=== PATIENT | male | born 1965 | race Caucasian/White ===

== ENCOUNTER 2021-11-08 15:25 | Emergency (ER) | payer OTHER ==
[2021-11-08 15:49] VITALS: BP 119/99
[2021-11-08] MEDS ORDERED: XYLOCAINE 1% HCL 20 ML MDV IJ ONE (15:59)
[2021-11-08] MEDS ORDERED: XYLOCAINE 1% HCL 20 ML MDV ONE (16:00)
--- NOTE | 2021-11-08 16:01 | ERPHSYRPT ---
- History of Present Illness Historian: patient Exam Limitations: no limitations Patient Subjective Stated Complaint: Rectal pain Triage Nursing Assessment: Patient ambulated back to ED and transferred self to bed. Patient A+O X3. Patient's skin pink, warm and dry. Patient states during his shower last night he felt pressure in his rectum and felt a raised area to rectum. Patient denies pain or discomfort. Patient was [facility] today and sent to ED for eval for possible rectal prolapse. Large protrusion noted in rectum. Physician History: 56 yo wm sent from clinic w possible rectal prolapse. Pt has been having mild rectal pain x 1 days. He denies trauma/melena/hematochezia/fever/N/V/D. Timing/Duration: yesterday Activities at Onset: other (Discovered while showering) Quality: aching Abdominal Pain Onset Location: other (Rectal) Pain Radiation: groin Severity of Pain-Current: mild Modifying Factors: Improves With: nothing Associated Symptoms: denies symptoms Previous symptoms: no prior history Allergies/Adverse Reactions: No Known Drug Allergies Allergy (Unverified 11/08/21 15:44) Home Medications: Lisinopril 10 mg [Zestril 10 MG] 1 tab PO DAILY 11/08/21 [History] Hx Influenza Vaccination/Date Given: Yes Hx Pneumococcal Vaccination/Date Given: No Immunizations Up to Date: Yes Travel Risk - International Travel Have you traveled outside of the country in past 3 weeks: No - Coronavirus Screening Are you exhibiting any of the following symptoms?: No Close contact with a COVID-19 positive Pt in past 14-21 Days: No - Vaccine Status Have you recieved a Covid-19 vaccination: Yes 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[employer]: [employer] - Review of Systems Constitutional: No Symptoms Eyes: No Symptoms Ears, Nose, & Throat: No Symptoms Respiratory: No Symptoms Cardiac: No Symptoms Abdominal/Gastrointestinal: No Symptoms Genitourinary Symptoms: No Symptoms Musculoskeletal: No Symptoms Skin: No Symptoms Neurological: No Symptoms Psychological: No Symptoms Endocrine: No Symptoms Hematologic/Lymphatic: No Symptoms Immunological/Allergic: No Symptoms - Past Medical History Pertinent Past Medical History: Yes Neurological History: No Pertinent History ENT History: No Pertinent History Cardiac History: Hypertension Respiratory History: No Pertinent History Endocrine Medical History: No Pertinent History Musculoskeletal History: No Pertinent History GI Medical History: GERD History: No Pertinent History Psycho-Social History: No Pertinent History Other Medical History: Celiac diease - Past Surgical History Past Surgical History: Yes Neuro Surgical History: No Pertinent History Cardiac: No Pertinent History Respiratory: No Pertinent History Gastrointestinal: Cholecystectomy Genitourinary: No Pertinent History Musculoskeletal: No Pertinent History Male Surgical History: No Pertinent History - Social History Smoking Status: Never smoker Exposure to second hand smoke: No Drug Use: none Patient Lives Alone: No Significant Family History: no pertinent family hx - Nursing Vital Signs Nursing Vital Signs: Initial Vital Signs Temperature 97.9 F 11/08/21 15:45 Pulse Rate 94 H 11/08/21 15:45 Respiratory Rate 18 11/08/21 15:45 Blood Pressure 119/99 11/08/21 15:45 O2 Sat by Pulse Oximetry 97 11/08/21 15:45 Pain Scale Pain Intensity 0 WNL - Physical Exam General Appearance: no apparent distress Eye Exam: PERRL/EOMI, eyes nml inspection Ears, Nose, Throat Exam: normal ENT inspection, TMs normal, pharynx normal, moist mucous membranes Neck Exam: normal inspection, non-tender, supple, full range of motion, No meningismus, No mass, No Brudzinski, No Kernig's, No carotid bruit Respiratory Exam: normal breath sounds, lungs clear, airway intact Cardiovascular Exam: regular rate/rhythm, normal heart sounds, normal peripheral pulses, capillary refill <2 sec, No murmur Gastrointestinal/Abdomen Exam: soft, normal bowel sounds, No tenderness Rectal Exam: other (Thrombosed hemorrhoid/No rectal prolapse) Back Exam: normal inspection Extremity Exam: normal inspection Neurologic Exam: alert, oriented x 3, cooperative, soa integration developer II-XII nml as tested, normal mood/affect, nml cerebellar function, nml station & gait, sensation nml Skin Exam: normal color, warm, dry Lymphatic Exam: No adenopathy SpO2 Interpretation: normal SpO2: 97 O2 Delivery: Room Air Procedures - Incision and Drainage Time of Procedure: 16:00 Site: thrombosed hemorrhoid Anesthesia: 1% Lidocaine cc's of anesthesia: 2 Blade Size: 11 I & D Procedure: betadine prep Results: other (Blood clots x2 expressed) - Course Nursing assessment & vital signs reviewed: Yes Ordered Tests: Medication Summary Discontinued Medications Generic Name Dose Route Start Last Admin Trade Name Freq PRN Reason Stop Dose Admin Lidocaine HCl 5 ml 11/08/21 15:59 11/08/21 15:59 Lidocaine Hcl 1% 20 Ml Mdv 20 Ml Ml IJ 11/08/21 16:00 5 ml STAT ONE Administration Lidocaine HCl Confirm 11/08/21 16:00 Lidocaine Hcl 1% 20 Ml Mdv 20 Ml Ml Administered 11/08/21 16:01 Dose 5 ml .ROUTE .STK-MED ONE - Progress Progress: improved Counseled pt/family regarding: diagnosis, need for follow-up - Departure Departure Disposition: Home Clinical Impression: External thrombosed hemorrhoids Condition: Stable Critical Care Time: No Referrals: KATJA KEMP [Primary Care Provider] - Follow up/PCP as directed Instructions: Hemorrhoids (DC) Additional Instructions: Warm sitz baths Pain meds as needed Use a stool softener Follow up with your family Prescriptions: Hydrocodone/Acetaminophen [Hydrocodone-Acetamin 5-325 mg] 1 each PO Q4HPRN PRN #5 tablet MDD 4 tabs PRN Reason: Pain
[2021-11-08 16:12] VITALS: PULSE 84
[2021-11-08 18:57] VITALS: O2SAT 97
== END 2021-11-08 16:11 | disposition home or self-care (01) ==
LOC: ED 15:25
DX: K64.5 Perianal venous thrombosis (principal); I10 Essential (primary) hypertension; Z79.891 Long term (current) use of opiate analgesic; Z79.899 Other long term (current) drug therapy
CPT/HCPCS: 46083; 96372; 99282